=== PATIENT | male | born 1935 | race African-American/Black ===

== ENCOUNTER 2016-08-10 03:44 | Inpatient (IN) | payer MEDICARE, OTHER ==
--- NOTE | ~2016-08-10 | DS ---
Unit #: [id number] #: [id number] Patient: HAYDEN UREÑA [id number] [address] [place], [place] [address] [id number] I MR#: [id number] NAME: HAYDEN UREÑA ROOM: 565 Age: 81 Sex: M Admission Date: 08/10/2016 : 1935 Discharge Date: 08/12/2016 Attending Physician: Wili Fraser M.D. Primary Care Physician: Lorenzo Lanza M.D. DISCHARGE SUMMARY DISCHARGE DIAGNOSES 1. Acute on chronic systolic congestive heart failure. 2. Ischemic cardiomyopathy with ejection fraction of 10% to 15%. 3. Valvular heart disease with qrcp-un-edjekcmx aortic regurgitation, mitral regurgitation and pltd-xm-pmrflunj tricuspid regurgitation. 4. Abnormal electrocardiogram. 5. Metastatic prostate and bone cancer. 6. Right ventricular systolic pressure of 37 millimeters of mercury. 7. Chest x-ray from August 12, 2016 shows resolution of congestive heart failure, no acute process in the chest. HOSPITAL COURSE The patient is a 81-year-old male with a past medical history of metastatic prostate and bone cancer, currently receiving chemo treatments. He does have ischemic cardiomyopathy, and his last EF approximately 1 year ago was 20% to 25%. He does have chronic systolic CHF and valvular heart disease. He does have a history of noncompliance. The patient was admitted in July of 2016 for a left pleural effusion and underwent a thoracentesis. The patient was admitted to the hospital on August 10, 2016 with complaints of dyspnea. He also had some complaints of bilateral chest pain associated with diaphoresis and headache. A two-D echo was done on August 10, 2016, which showed severely reduced LVEF of 10% to 15%. The left atrium was mildly dilated. He does have rdfg-ld-lebqkknl aortic regurgitation, iaeg-ri-bekxfgrs mitral regurgitation and acjh-zl-xlswxgzj tricuspid regurgitation. His RVSP was 37 mmHg. The patient was found to be in acute on chronic systolic CHF. The patient was started on a dopamine drip. He also was started on Aldactone and lisinopril. Once the dobutamine drip was stopped, the patient was started on Lopressor. The patient has had some asymptomatic hypotension, and his medications have been decreased. Today the patient is awake, alert, in no acute distress. Vital signs are stable, and he is stable to go home. Dr. Huerta has seen the patient and is agreeable. DISCHARGE/FOLLOWUP INSTRUCTIONS 1. The patient will be discharged home. 2. The patient is to follow up with primary care provider in 1 week. 3. The patient is to follow up with oncology in 3 weeks. 4. The patient will need to follow up with Dr. Huerta in approximately 1 month. 5. Healthy heart diet. 6. Activity as tolerated. Unit #: [id number] #: [id number] Patient: HAYDEN UREÑA 7. The patient is to seek medical attention or return to the ER if signs or symptoms worsen. DISCHARGE MEDICATIONS 1. Lopressor 12.5 mg p.o. b.i.d. 2. Furosemide 40 mg p.o. daily. 3. Lisinopril 5 mg p.o. at bedtime. 4. Hytrin 10 mg p.o. daily. 5. Hydrocodone/acetaminophen 5/325 mg 1 tab p.o. q.i.d. p.r.n. pain. 6. Spironolactone 12.5 mg p.o. daily. 7. Methocarbamol 500 mg p.o. b.i.d. Dictated by... Kim Turner A.P.R.N. for Sourav Huerta M.D. AM/hair TD: 08/12/2016 15:24 JOB #: [id number] DISCHARGE SUMMARY X Kim Turner APRN X DISCHARGE SUMMARY
--- NOTE | ~2016-08-10 | HP ---
Unit #: [id number] #: [id number] Patient: HAYDEN UREÑA [id number] [address] [place], [place] [address] [id number] I MR#: [id number] NAME: HAYDEN UREÑA ROOM: 565 Age: 81 Sex: M Admission Date: 08/10/2016 : 1935 Attending Physician: Wili Fraser M.D. Primary Care Physician: Lorenzo Lanza M.D. HISTORY AND PHYSICAL HISTORY OF PRESENT ILLNESS This is a 81-year-old -[place] male with past medical history of metastatic prostate and bone cancer currently getting chemo treatments, ischemic cardiomyopathy with a last EF a year ago that was 20% to 25%, acute systolic CHF with valvular heart disease, noncompliance and a hospitalization in July of 2015 for a left pleural effusion status post thoracentesis. He was admitted this morning on 08/10/16 around 5:00 in the morning with severe difficulty breathing. He also complains of some nasal congestion and orthopnea. He is saying he could not lay flat and breathe. This occurred suddenly. He reports he has had a two pound weight gain over the last two visits to his oncologist. Also has complaints of bilateral chest tightness that is associated with diaphoresis and a headache, left-sided neck pain and this chest tightness is intermittent in nature but is chronic and he says it has been coming and going for a while. Sometimes it can last about four minutes, other times it lasts about four hours. He denies any swelling. He denies any abdominal distention. He denies any palpitations. He had a 2D echo on 08/15/15 which showed an EF of 20% to 25%, mild to moderate AI and moderate MR. SOCIAL HISTORY Social history is negative for any smoking, any alcohol or any illicit drug use. ALLERGIES No known drug allergies. HOME MEDICATIONS Home meds include: 1. Naproxen 500 mg daily. 2. Methocarbamol 500 mg b.i.d. 3. Hytrin which is terazosin 10 mg daily. 4. Lortab 5/325 one tablet q.i.d. p.r.n. for any pain. REVIEW OF SYSTEMS Review of systems as noted above in HPI was positive for some chest tightness this morning when he could not breathe however he is feeling no pain on interview. He does have mild respiratory distress. PHYSICAL EXAMINATION Unit #: [id number] #: [id number] Patient: HAYDEN UREÑA VITAL SIGNS: Blood pressure 97.3. Heart rate 81. Respirations 18. Blood pressure 127/79. He is 96% on supplemental oxygen. He is 96.9 kg and his BMI is 20. GENERAL: He is lying in bed on his side and appears only in mild acute respiratory distress. HEENT: His head is normocephalic. His pupils are equal, round, reactive to light and accommodation, with extraocular movements intact. NECK: His neck is supple with mild JVD noted. No bruits noted. LUNGS: Have fine crackles which are worse in the right than in the left. HEART: Cardiovascular-ohara he is in a regular rate and rhythm with S1, S2 noted. No murmurs, gallops or rubs were appreciated. ABDOMEN: Abdomen is soft and nontender, nondistended and flat. He has positive bowel sounds. EXTREMITIES: Show no edema and he has positive pulses. He ambulates with a cane. DIAGNOSTIC STUDIES IMAGING: Two-D echo which was done on 08/10/16 is pending. Chest x-ray on 08/10 showed cardiomegaly with developing mild CHF, trace right pleural effusion seen. CARDIUOVASCULAR: EKG on 08/10 showed normal sinus rhythm with a left atrial enlargement and complete left bundle branch block. T- wave abnormalities in the lateral leads and T-wave inversions in leads V5 and V6. ASSESSMENT 1. Jpqfe-mg-rrphsjz systolic congestive heart failure with an ejection fraction of 20% to 25%, BNP 1587. 2. Valvular heart disease including moderate mitral regurgitation, mild to moderate atrial insufficiency. 3. Hypertension. 4. Chest pain with some T-wave abnormalities. 5. Ischemic cardiomyopathy, ejection fraction is 20% to 25%. 6. Current chemotherapy treatments. PLAN He is admitted under telemetry for wsiip-db-iphygqr systolic heart failure. He will need diuresed and currently I have written for 40 mg of IV Lasix b.i.d. We will start Coreg at a low dose with parameters for his decreased LV function. Repeat a 2D echo which has been done and is pending read. Trend his enzymes and troponins however he has had two in the EWR which were negative and two up on the floor which have been negative. EKG did show some abnormality, probably due to his complaints of chest pain, needing ischemic workup once his acute heart failure is stabilized. We will write for 1800 fluid restriction and strict Is and Os to control his heart failure. If his EF remains low, consider spironolactone 25 daily. He will be on a heart healthy diet. Further plan per Dr. Huerta. Dictated by Margaret Andre APRN for Unit #: [id number] #: [id number] Patient: HAYDEN UREÑA Bhavesh Balderrama/clarissa TD: 08/10/2016 17:05 JOB #: [id number] HISTORY AND PHYSICAL X X HISTORY AND PHYSICAL
--- NOTE | ~2016-08-10 | EKG ---
PATIENT: HAYDEN UREÑA UNIT #: [id number] Ventricular Rate: 88 BPM Atrial Rate: 79 BPM P-R Interval: 156 ms QRS Duration: 102 ms Q-T Interval: 372 ms QTC Calculation(Bezet): 450 ms P Hermleigh: 31 degrees Calculated R Hermleigh: 36 degrees Calculated T Hermleigh: 129 degrees Diagnosis Line: Sinus rhythm with occasional Premature ventricular Diagnosis Line: complexes and Premature atrial complexes Diagnosis Line: ST and T wave abnormality, consider lateral ischemia Diagnosis Line: Abnormal ECG Diagnosis Line: When compared with ECG of 10-AUG-2016 03:38, Diagnosis Line: Premature ventricular complexes are now Present Diagnosis Line: Premature atrial complexes are now Present Diagnosis Line: Inverted T waves have replaced nonspecific T wave Diagnosis Line: abnormality in Anterior leads Diagnosis Line: Confirmed by VIOLETTE SCHAEFFER, KAVITHA ([id number]) on 08/11/2016 Diagnosis Line: 7:17:37 AM INTERPRETING MD: VIOLETTE SCHAEFFER
--- NOTE | ~2016-08-10 | CR63 ---
[facility] A Service of [facility] RADIOLOGY TEXT RESULTS PATIENT: HAYDEN UREÑA LOCATION: [place] [address] : 37 UNIT #: [id number] AGE: [address]: Wili Fraser MD SEX: M ORDER DR: [id number] [facility] [address] [facility]. [place], [place] [address] [id number] I MR#: [id number] Acc #: [id number] NAME: HAYDEN UREÑA : 1935 SEX: M STUDY DATE/TIME: 08/12/2016 7:01 UNIT: [facility] ROOM: [facility] STUDY DESCRIPTION: CR Chest 2 View Attending Physician: Wili Fraser M.D. Ordering Physician: Sourav Huerta M.D. Primary Care Physician: Lorenzo Lanza M.D. MEDICAL IMAGING REPORT This report is preliminary unless electronic signature is present EXAM Chest PA and lateral DATE OF EXAMINATION 08/12/2016 COMPARISON 08/10/2016 HISTORY SUPPLIED Shortness of breath and wheezing for 2 days. History of metastatic prostate cancer. Congestive heart failure. FINDINGS PA and lateral views of the chest obtained. The heart size is now normal. The pulmonary vascular markings are now normal. Lungs are clear. No pleural fluid is seen. There are granulomatous calcifications in the mediastinum. CONCLUSION Resolution of congestive heart failure. No acute process in the chest. Dictated by... Reji Jimenez M.D. THIS IS AN ELECTRONICALLY VERIFIED REPORT Reji Jimenez M.D. at 08/12/2016 12:04 PM ELLIS/uday TD: 08/12/2016 09:49 JOB #: [id number] [facility] A Service [facility] RADIOLOGY TEXT RESULTS PATIENT: HAYDEN UREÑA LOCATION: [facility] 56 : 37 UNIT #: [id number] AGE: [address]: Wili Fraser MD SEX: M ORDER DR: MEDICAL IMAGING REPORT COPY
--- NOTE | ~2016-08-10 | EKG ---
PATIENT: HAYDEN UREÑA UNIT #: [id number] Ventricular Rate: 91 BPM Atrial Rate: 91 BPM P-R Interval: 164 ms QRS Duration: 106 ms Q-T Interval: 374 ms QTC Calculation(Bezet): 460 ms P Martell: 62 degrees Calculated R Martell: 42 degrees Calculated T Martell: 145 degrees Diagnosis Line: Normal sinus rhythm Diagnosis Line: Possible Left atrial enlargement Diagnosis Line: Incomplete left bundle branch block Diagnosis Line: T wave abnormality, consider lateral ischemia Diagnosis Line: Prolonged QT Diagnosis Line: Abnormal ECG Diagnosis Line: When compared with ECG of 10-AUG-2016 03:37, Diagnosis Line: (unconfirmed) Diagnosis Line: Premature ventricular complexes are no longer Diagnosis Line: Present Diagnosis Line: Premature supraventricular complexes are no longer Diagnosis Line: Present Diagnosis Line: Confirmed by AYDEE BLAKE MD ([id number]) on Diagnosis Line: 08/10/2016 10:51:57 PM INTERPRETING MD: ANA
--- NOTE | ~2016-08-10 | CR72 ---
[facility] A Service of [facility] RADIOLOGY TEXT RESULTS PATIENT: HAYDEN UREÑA LOCATION: [facility] [address] : 37 UNIT #: [id number] AGE: [address]: Wili Fraser MD SEX: M ORDER DR: [id number] [facility] [address] [facility]. [place], [place] [address] [id number] E MR#: [id number] Acc #: [id number] NAME: HAYDEN UREÑA. : 1935 SEX: M STUDY DATE/TIME: 08/10/2016 03:06 UNIT: [facility] ROOM: STUDY DESCRIPTION: CR Chest Single View Portable Attending Physician: Dmitriy Marie D.O. Ordering Physician: Dmitriy Marie D.O. Primary Care Physician: Lorenzo Lanza M.D. MEDICAL IMAGING REPORT This report is preliminary unless electronic signature is present EXAM Portable chest 08/10 03:06 INDICATIONS Shortness of air that started about 8 hours ago. History of hypertension. FINDINGS AP portable chest compared with 09/26/2015. Heart is enlarged. There is vascular congestion with developing pulmonary edema. There is a trace amount of right pleural fluid. No pneumothorax is seen. There is some atherosclerotic disease in the aorta. There is an old right clavicle fracture. IMPRESSION Cardiomegaly with developing mild CHF. There is a trace amount of right pleural fluid. Dictated by... Yuri Powers Jr., M.D. THIS IS AN ELECTRONICALLY VERIFIED REPORT Yuri Powers Jr., M.D. at 08/10/2016 9:58 PM WILLIAM/sreekanth TD: 08/10/2016 06:26 JOB #: [id number] MEDICAL IMAGING REPORT COPY
[2016-08-10 03:36] LABS: BASOPHIL# 0.1 X10e3 (0-0.3); BASOPHIL% 0.9 % (0-2.5); EOSINOPHIL# 0.2 X10e3 (0-0.7); EOSINOPHIL% 1.7 % (0.0-7.0); HEMATOCRIT 36.6 % (38.0-50.0); HEMOGLOBIN 11.6 gm/dL (13.0-16.0); LYMPHOCYTE# 0.9 X10e3 (1.0-3.5); LYMPHOCYTE% 8.4 % (17.0-45.0); MEAN CELL VOLUME 97.5 FL (83-96); MEAN CORPUSCULAR HGB CONC 31.8 g/dL (30-36); MEAN PLATELET VOLUME 11.1 FL (6.5-11.5); MONOCYTE# 0.4 X10e3 (0-1.0); MONOCYTE% 3.5 % (3.0-12.0); NEUTROPHIL# 9.2 X10e3 (1.5-7.1); NEUTROPHIL% 85.5 % (40-75); PLATELET COUNT 147 X10e3 (140-420); RED BLOOD COUNT 3.75 X10e (3.90-5.60); RED CELL DISTRIBUTION WIDTH 14.4 % (11.0-15.5); WHITE BLOOD COUNT 10.8 X10e3 (4.0-10.5)
[2016-08-10 03:37] LABS: DIFF IND NO
[~2016-08-10 03:44] MED LIST: ACID REFLUX MED PO; ALBUTEROL17 GM INH; B/P MED; DOXYCYCLINE PO; PREDNISONE PO; PROSTATE MED; PROZAC PO; VICODIN 5/500 T1 TAB PO
[2016-08-10 03:58] LABS: PARTIAL THROMBOPLASTIN TIME 27.2 SECONDS (23.5-31.3); PROTHROMBIN TIME (PATIENT) 10.5 SECONDS (9.6-11.5)
[2016-08-10 04:01] LABS: ALBUMIN SERUM 3.9 g/dL (3.5-5.0); ALKALINE PHOSPHATASE 35 U/L (32-92); ALT (SGPT) 12 U/L (10-40); AST (SGOT) 18 U/L (10-42); BILIRUBIN, DIRECT 0.1 mg/dL (0.0-0.2); BILIRUBIN,INDIRECT 0.7 mg/dL (0.0-0.9); BILIRUBIN,TOTAL 0.8 mg/dL (0.2-2.0); BLOOD UREA NITROGEN 26 mg/dL (9-23); CALCIUM SERUM 8.7 mg/dL (8.4-10.2); CARBON DIOXIDE 24 mmol/L (22-31); CHLORIDE 112 mmol/L (100-111); CREATININE SERUM 1.3 mg/dL (0.6-1.4); GLOM FILT RATE Estimated ABOVE60 mL/min (>60); GLUCOSE FASTING 121 mg/dL (70-110); POTASSIUM 4.4 mmol/L (3.5-5.1); PROTEIN TOTAL SERUM 7.5 g/dL (6.0-8.3); SODIUM 144 mmol/L (135-145)
[2016-08-10 04:24] LABS: POC - CKMB 1.9 ng/mL (0.0-7.9); POC - TROPONIN <0.05 ng/mL (<=0.05)
[2016-08-10] MEDS ORDERED: NAPROSYN-EC500 M1 PO (05:45)
[2016-08-10] MEDS ORDERED: HYTRIN10 M1 PO (05:46)
[2016-08-10] MEDS ORDERED: METHOCARBAMOL500 MG PO (05:46)
[2016-08-10] MEDS ORDERED: LORTAB 5-325 M1 EACH PO (05:48)
[2016-08-10 06:15] LABS: POC - TROPONIN <0.05 ng/mL (<=0.05)
[2016-08-10 07:18] LABS: INFLUENZA A NEG (NEG); INFLUENZA B NEG (NEG)
[2016-08-10 12:01] LABS: BASOPHIL% 0.1 % (0-2.5); HEMATOCRIT 37.9 % (38.0-50.0); LYMPHOCYTE# 0.5 X10e3 (1.0-3.5); LYMPHOCYTE% 5.6 % (17.0-45.0); MEAN CELL VOLUME 96.7 FL (83-96); MEAN CORPUSCULAR HEMOGLOBIN 30.7 PG (28-34); MEAN CORPUSCULAR HGB CONC 31.7 g/dL (30-36); MEAN PLATELET VOLUME 11.7 FL (6.5-11.5); MONOCYTE# 0.1 X10e3 (0-1.0); MONOCYTE% 1.4 % (3.0-12.0); NEUTROPHIL# 8.1 X10e3 (1.5-7.1); NEUTROPHIL% 92.9 % (40-75); PLATELET COUNT 163 X10e3 (140-420); RED BLOOD COUNT 3.92 X10e (3.90-5.60); RED CELL DISTRIBUTION WIDTH 14.4 % (11.0-15.5); WHITE BLOOD COUNT 8.8 X10e3 (4.0-10.5)
[2016-08-10 12:02] LABS: DIFF IND NO
[2016-08-10 12:40] LABS: ALBUMIN SERUM 4.2 g/dL (3.5-5.0); ALKALINE PHOSPHATASE 38 U/L (32-92); ALT (SGPT) 13 U/L (10-40); AST (SGOT) 23 U/L (10-42); BILIRUBIN,TOTAL 0.8 mg/dL (0.2-2.0); BLOOD UREA NITROGEN 26 mg/dL (9-23); BUN/CREATININE RATIO 18.57; CALCIUM SERUM 8.9 mg/dL (8.4-10.2); CARBON DIOXIDE 24 mmol/L (22-31); CHLORIDE 104 mmol/L (100-111); CK TOTAL 133 IU/L (36-174); CREATININE SERUM 1.4 mg/dL (0.6-1.4); GLOM FILT RATE Estimated ABOVE60 mL/min (>60); GLUCOSE FASTING 145 mg/dL (70-110); POTASSIUM 3.8 mmol/L (3.5-5.1); PROTEIN TOTAL SERUM 8.3 g/dL (6.0-8.3); SODIUM 139 mmol/L (135-145)
[2016-08-10 12:58] LABS: MB 2.7 ng/ml
[2016-08-10 18:20] LABS: MB 2.7 ng/ml
[2016-08-11 00:19] LABS: MB 2.3 ng/ml
[2016-08-11 06:25] LABS: CALCIUM SERUM 8.8 mg/dL (8.4-10.2); CREATININE SERUM 1.6 mg/dL (0.6-1.4); GLOM FILT RATE Estimated 53.9 mL/min (>60); MAGNESIUM 2.1 mg/dL (1.6-3.0); POTASSIUM 3.6 mmol/L (3.5-5.1)
[2016-08-12 07:23] LABS: BUN/CREATININE RATIO 19.41; CREATININE SERUM 1.7 mg/dL (0.6-1.4); GLOM FILT RATE Estimated 50.2 mL/min (>60); POTASSIUM 4.7 mmol/L (3.5-5.1)
[2016-08-12] MEDS ORDERED: METOPROLOL TAR25 MG PO (15:10)
[2016-08-12] MEDS ORDERED: FUROSEMIDE40 MG PO (15:11)
[2016-08-12] MEDS ORDERED: ZESTRIL2.5 MG PO (15:12)
[2016-08-12] MEDS ORDERED: ALDACTONE25 MG PO (15:13)
== END 2016-08-12 17:00 | disposition home or self-care (01) | DRG 292 ==
LOC: CED 03:44 → CEDOF 05:20 → C5C 10:53
PROVIDERS: Emergency Medicine; Nurse Practitioner
PROC: B24BZZZ Ultrasonography of Heart with Aorta (ICD-10-PCS; principal; 2016-08-10)
DX: I50.23 Acute on chronic systolic (congestive) heart failure (principal); C79.51 Secondary malignant neoplasm of bone; C61 Malignant neoplasm of prostate; I25.5 Ischemic cardiomyopathy; I08.3 Combined rheumatic disorders of mitral, aortic and tricuspid valves; I10 Essential (primary) hypertension
CPT/HCPCS: 36415; 71010; 71020; 80048; 80053; 80076; 82550; 82553; 83036; 83735; 83880; 84484; 85025; 85610; 85730; 87804; 93005; 93306; 96374; 99285; J1250; J1940

== ENCOUNTER → 2016-08-26 | Outpatient (CLI) | payer MEDICARE, OTHER ==
[~2016-08-26] MED LIST changes: +ALDACTONE25 MG PO; +FUROSEMIDE40 MG PO; +HYTRIN10 M1 PO; +LORTAB 5-325 M1 EACH PO; +METHOCARBAMOL500 MG PO; +METOPROLOL TAR25 MG PO; +NAPROSYN-EC500 M1 PO; +ZESTRIL2.5 MG PO
--- NOTE | ~2016-08-26 | CT55 ---
[facility] A Service [facility] RADIOLOGY TEXT RESULTS PATIENT: HAYDEN UREÑA LOCATION: [facility] : 37 UNIT #: [id number] AGE: [address]: Margoth Arechiga MD SEX: M ORDER DR: [id number] [place] [id number] [facility]. [place], [place] [address] [id number] O MR#: [id number] Acc #: [id number] NAME: HAYDEN UREÑA : 1935 SEX: M STUDY DATE/TIME: 08/26/2016 11:28 UNIT: [facility] ROOM: STUDY DESCRIPTION: CT Chest W Con Attending Physician: Margoth Arechiga M.D. Ordering Physician: Margoth Arechiga M.D. Primary Care Physician: Lorenzo Lanza M.D. MEDICAL IMAGING REPORT This report is preliminary unless electronic signature is present EXAM CT chest with contrast. INDICATION Restaging prostate cancer. Generalized body pain. Observation for metastatic disease. PROCEDURE Contrast-enhanced CT of the chest. 100 mL of Isovue-370. This CT exam was performed with one or more of the following radiation dose reduction techniques: automatic exposure control, adjustment of mA and/or kV according to patient size, and iterative reconstruction. COMPARISON 10/10/2014 FINDINGS No pulmonary nodule. Diffusely enlarged and heterogeneous thyroid gland greatest in the right lobe is similar and most in keeping with a multinodular goiter. Small mediastinal nodes are unchanged. No aggressive appearing bone lesion. IMPRESSION No evidence for metastatic disease in the chest. Dictated by... Chaka Murry M.D. THIS IS AN ELECTRONICALLY VERIFIED REPORT Chaka Murry M.D. at 08/27/2016 6:56 AM [facility] A Service [facility] RADIOLOGY TEXT RESULTS PATIENT: HAYDEN UREÑA LOCATION: [facility] : 37 UNIT #: [id number] AGE: [address]: Margoth Arechiga MD SEX: M ORDER DR: ALEX/basil TD: 08/26/2016 14:31 JOB #: [id number] MEDICAL IMAGING REPORT COPY
--- NOTE | ~2016-08-26 | CT114 ---
[facility] A Service of [facility] & [facility] RADIOLOGY TEXT RESULTS PATIENT: HAYDEN UREÑA LOCATION: [facility] : 37 UNIT #: [id number] AGE: [address]: Margoth Arechiga MD SEX: M ORDER DR: [id number] [facility] [address] [place], [place] [address] [id number] O MR#: [id number] Acc #: [id number] NAME: HAYDEN UREÑA : 1935 SEX: M STUDY DATE/TIME: 08/26/2016 11:28 UNIT: [facility] ROOM: STUDY DESCRIPTION: CT Soft Tissue Neck W Cont Attending Physician: Margoth Arechiga M.D. Ordering Physician: Margoth Arechiga M.D. Primary Care Physician: Lorenzo Lanza M.D. MEDICAL IMAGING REPORT This report is preliminary unless electronic signature is present EXAM Soft tissue neck CT with contrast. DATE OF STUDY 08/26/[address] same date. CLINICAL HISTORY History of metastatic prostate cancer with diffuse pain all over for several years and back pain this morning. COMPARISON Soft tissue neck CT dated 07/22/2013. TECHNIQUE NOTE: This CT exam was performed with one or more of the following radiation dose reduction techniques: automatic exposure control, adjustment of mA and/or kV according to patient size, and iterative reconstruction. FINDINGS There is no suspicious adenopathy. There is thyromegaly with irregular enlargement of the right lobe of the gland extending down into the upper mediastinum just below the margins of the exam. There is no erosion or destruction of the adjacent soft tissues or evidence of tissue plane disruption. There is plaque at the cervical carotid bifurcations, but probably no more than 10% to 20% right and 0% left ICA stenosis by NASCET criteria. There is a single slightly prominent lymph node in the left supraclavicular region, perhaps 17 mm in size, but this is in the region of a former bulky mass or lymphadenopathy at least 4.5 cm in size. Changes in the right thyroid are not grossly changed since the prior exam. [facility] A Service of [facility] & [facility] RADIOLOGY TEXT RESULTS PATIENT: HAYDEN UREÑA LOCATION: [facility] : 37 UNIT #: [id number] AGE: [address]: Margoth Arechiga MD SEX: M ORDER DR: No other notable cervical lymph nodes are identified. There are spinal degenerative changes without acute bony abnormalities. IMPRESSION 1. No suspicious lymphadenopathy. Single persistently minimally prominent lymph node in the low left neck is actually markedly diminished since an exam of 07/22/2013. 2. Right greater than left thyroid enlargement with extension in the upper mediastinum is not substantially changed since 07/22/2013. No new or acute-appearing abnormality is seen. There is some slight left maxillary sinus floor mucosal thickening. Dictated by... Jeovany Brambila M.D. THIS IS AN ELECTRONICALLY VERIFIED REPORT Jeovany Brambila M.D. at 09/14/2016 2:36 PM LESLI/claudia TD: 08/26/2016 23:51 JOB #: [id number] MEDICAL IMAGING REPORT Page 1 of 1 COPY
--- NOTE | ~2016-08-26 | CT2 ---
[facility] A Service of [facility] RADIOLOGY TEXT RESULTS PATIENT: HAYDEN UREÑA LOCATION: [facility] : 37 UNIT #: [id number] AGE: [address]: Margoth Arechiga MD SEX: M ORDER DR: [id number] [facility] [address] [place], [place] [address] [id number] O MR#: [id number] Acc #: [id number] NAME: HAYDEN UREÑA : 1935 SEX: M STUDY DATE/TIME: 08/26/2016 11:28 UNIT: [facility] ROOM: STUDY DESCRIPTION: CT Abd and Pelv W Cont Attending Physician: Margoth Arechiga M.D. Ordering Physician: Margoth Arechiga M.D. Primary Care Physician: Lorenzo Lanza M.D. MEDICAL IMAGING REPORT This report is preliminary unless electronic signature is present EXAM CT abdomen and pelvis with contrast INDICATION Restaging prostate cancer. Observation for metastatic disease. PROCEDURE Contrast-enhanced CT of the abdomen and pelvis. 100 mL of Isovue-370. This CT exam was performed with one or more of the following radiation dose reduction techniques: automatic exposure control, adjustment of mA and/or kV according to patient size, and iterative reconstruction. COMPARISON 10/30/2015 FINDINGS Refer to the separately dictated chest CT for thoracic findings. ABDOMEN WITH CONTRAST: Hepatic cysts are stable, measure up to 2 cm. The spleen, adrenal glands, pancreas, gallbladder unremarkable. There are a few tiny cysts in the right kidney. Small nonobstructing calculi in the lower pole of the right kidney. The bowel loops are nondilated. No abdominal adenopathy. PELVIS WITH CONTRAST: No pelvic adenopathy. Prostate measures 5.5 cm. No aggressive appearing bone lesion. IMPRESSION 1. No convincing evidence for metastatic disease in the abdomen or pelvis. 2. Prostatomegaly. 3. Incidental findings are detailed above. [facility] A Service [facility] RADIOLOGY TEXT RESULTS PATIENT: HAYDEN UREÑA LOCATION: [facility] : 37 UNIT #: [id number] AGE: [address]: Margoth Arechiga MD SEX: M ORDER DR: Dictated by... Chaka Murry M.D. THIS IS AN ELECTRONICALLY VERIFIED REPORT Chaka Murry M.D. at 08/27/2016 6:56 AM ALEX/basil TD: 08/26/2016 15:09 JOB #: [id number] MEDICAL IMAGING REPORT COPY
[2016-08-26 15:43] LABS: POC - CREATININE 1.41 mg/dL (0.64-1.27); POC - GFR >60.0 mL/min (>60)
== END | disposition home or self-care (01) ==
LOC: CCAT 09:41
PROVIDERS: Internal Medicine Hematology
DX: C61 Malignant neoplasm of prostate (principal); C79.51 Secondary malignant neoplasm of bone; R59.9 Enlarged lymph nodes, unspecified; N40.0 Benign prostatic hyperplasia without lower urinary tract symptoms
CPT/HCPCS: 70491; 71260; 74177; 82565; J1940; Q9967

== ENCOUNTER → 2017-03-04 | Outpatient (CLI) | payer MEDICARE, OTHER ==
--- NOTE | ~2017-03-04 | CR242 ---
[facility] A Service of [facility] & [facility] RADIOLOGY TEXT RESULTS PATIENT: HAYDEN UREÑA LOCATION: [facility] : 37 UNIT #: [id number] AGE: [address]: Margoth Arechiga MD SEX: M ORDER DR: [id number] [facility] [address] [place], [place] [address] [id number] O MR#: [id number] Acc #: [id number] NAME: HAYDEN UREÑA : 1935 SEX: M STUDY DATE/TIME: 03/04/2017 13:38 UNIT: [facility] ROOM: STUDY DESCRIPTION: CR Thoracic Spine 2 Views Attending Physician: Margoth Arechiga M.D. Referring Physician: Margoth Arechiga M.D. Ordering Physician: Margaret Flores M.D. Primary Care Physician: Primary Care Physician No MEDICAL IMAGING REPORT This report is preliminary unless electronic signature is present EXAM 3 views thoracic spine INDICATION Abnormal bone scan performed March 04, 2017 which showed the patient was noted to have some uptake in the region of the left tenth rib and also at the sternoclavicular joint. FINDINGS No acute fracture or subluxation of the thoracic spine is identified. Patient does have extensive degenerative changes of the spine. I am not convinced I can see any aggressive osseous abnormalities. IMPRESSION No acute findings. No convincing evidence of osseous metastatic disease. Dictated by... Soraida Pham M.D. THIS IS AN ELECTRONICALLY VERIFIED REPORT Soraida Pham M.D. at 03/05/2017 5:01 PM XAVIER/madelyn TD: 03/05/2017 15:25 JOB #: [id number] MEDICAL IMAGING REPORT Page 1 of 1 COPY
--- NOTE | ~2017-03-04 | CR181 ---
[facility] A Service of [facility] RADIOLOGY TEXT RESULTS PATIENT: HAYDEN UREÑA LOCATION: [facility] : 37 UNIT #: [id number] AGE: [address]: Margoth Arechiga MD SEX: M ORDER DR: [id number] [facility] [address] [place], [place] [address] [id number] O MR#: [id number] Acc #: [id number] NAME: HAYDEN UREÑA : 1935 SEX: M STUDY DATE/TIME: 03/04/2017 13:39 UNIT: [facility] ROOM: STUDY DESCRIPTION: CR Lumbar Spine 2 or 3 Views Attending Physician: Margoth Arechiga M.D. Referring Physician: Margoth Arechiga M.D. Ordering Physician: Margaret Flores M.D. Primary Care Physician: Primary Care Physician No MEDICAL IMAGING REPORT This report is preliminary unless electronic signature is present EXAM Lumbar spine series HISTORY Chronic back pain. Abnormal bone scan upper lumbar spine on the left. Prostate cancer diagnosed 3 years ago. TECHNIQUE 3 views of the lumbar spine were obtained. FINDINGS Advanced degenerative changes are seen throughout the lumbar spine. There is a large lateral osteophyte on the left at L1-2. This accounts for the bone scan abnormality. There is a pseudoarthrosis across this osteophyte. There is no evidence of sclerotic bone lesion to suggest metastatic prostate cancer at any lumbar level. IMPRESSION Advanced multilevel lumbar degenerative disc disease. No evidence of metastatic disease. Dictated by... Yuri Lehman M.D. THIS IS AN ELECTRONICALLY VERIFIED REPORT Yuri Lehman M.D. at 03/05/2017 4:57 PM JULIET/madelyn TD: 03/05/2017 12:55 JOB #: [id number] MEDICAL IMAGING REPORT Page 1 of 1 COPY
--- NOTE | ~2017-03-04 | NM8 ---
[facility] A Service of [facility] & [facility] RADIOLOGY TEXT RESULTS PATIENT: HAYDEN UREÑA LOCATION: [facility] : 39 UNIT #: [id number] AGE: [address]: Margoth Arechiga MD SEX: M ORDER DR: [id number] [facility] [address] [place], [place] [address] [id number] O MR#: [id number] #: [id number] NAME: HAYDEN UREÑA : 1935 SEX: M STUDY DATE/TIME: 03/04/2017 12:39 UNIT: [facility] ROOM: STUDY DESCRIPTION: NM Bone or Joint Whole Body Attending Physician: Margoth Arechiga M.D. Referring Physician: Margoth Arechiga M.D. Ordering Physician: Margoth Arechiga M.D. MEDICAL IMAGING REPORT This report is preliminary unless electronic signature is present EXAM Whole-body bone scan HISTORY Bilateral leg pain from knees to both feet. Dog pulled on leash very hard, causing patient to fall. Prostate cancer diagnosed 3 years ago. COMPARISON Whole-body bone scan 08/01/2013. CT abdomen and pelvis 08/26/2016. Thoracic spine series 03/04/2017. TECHNIQUE Whole-body and selected spot images were performed of the axial and appendicular skeleton following intravenous administration of 28.8 mCi Tc-99m MDP. FINDINGS Examination demonstrates increased uptake within both knees, predominately within the medial compartment and to a lesser extent within the patellofemoral compartment. 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 There is increased uptake at the sternoclavicular joints bilaterally, felt to be degenerative. Review of the patient's chest CT from August 2017 confirms degenerative changes at the sternoclavicular joints. There is a subtle focus of increased uptake in the right parasternal region near the costosternal junction. This is nonspecific and may be related to prior trauma. Metastatic disease not excluded. There is increased uptake in the lumbar spine, just to the left of midline, well seen on the anterior acquisitions and this is felt to correspond to a bulky osteophyte projecting anteriorly at the L1-2 lumbar level. Review of the CT scan in August demonstrates a fracture or lucency through the osteophyte and this could represent a source for the patient's increased activity on bone scan. Increased uptake is also seen ST[facility] A Service of [facility] RADIOLOGY TEXT RESULTS PATIENT: HAYDEN UREÑA LOCATION: [facility] : 39 UNIT #: [id number] AGE: [address]: Margoth Arechiga MD SEX: M ORDER DR: bilaterally at the L4-5 level which is felt to correspond to bilateral L4-5 facet arthropathy. There is increased uptake in the left maxilla, possibly related to prior dental surgery or dental disease. Mild increased uptake in the left hip, pattern most compatible with arthritic change. There may be very subtle increased uptake anteriorly at the aspect of the right L5 vertebral body, nonspecific, probably degenerative in nature, though metastatic disease not excluded. Bilateral renal activity and normal bladder activity noted. Some increased uptake also noted in lower cervical spine. IMPRESSION 1. Multiple foci of increased uptake within the axial and appendicular skeleton, as detailed above. The majority of foci of increased uptake are felt to be explained by underlying degenerative change, though there are foci within the right parasternal region and right anterior L5 vertebral body, which are not definitely explained by degenerative change. These, however, are not highly concerning for osseous metastatic disease. 2. Increased uptake in the left upper lumbar spine, which is felt to correspond to a bulky osteophyte projecting anteriorly seen on the patient's CT scan in August. There is an apparent fracture through the osteophyte and this may account for the increased activity on bone scan. 3. Thoracic spine films obtained on 03/04 has imaging findings suggesting either ankylosing spondylitis or diffuse idiopathic skeletal hyperostosis within the spine. 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 Correlate with patient's rheumatologic history. Dictated by... Lalitha Adams M.D. THIS IS AN ELECTRONICALLY VERIFIED REPORT Lalitha Adams M.D. at 03/06/2017 4:04 PM SHIVANI/shruti TD: 03/05/2017 03:56 JOB #: [id number] MEDICAL IMAGING REPORT Page 1 of 1 COPY
== END | disposition home or self-care (01) ==
LOC: CNUC 09:00
DX: C61 Malignant neoplasm of prostate (principal); C79.51 Secondary malignant neoplasm of bone; R59.9 Enlarged lymph nodes, unspecified; M51.36 Other intervertebral disc degeneration, lumbar region
CPT/HCPCS: 72070; 72100; 78306; A9503